=== PATIENT | female | born 1970 | race African-American/Black ===

== ENCOUNTER → 2018-10-17 | Outpatient (CLI) | payer BC ==
[2018-10-17 07:48] LABS: BASOPHILS % 0.4 % (0.0-1.0); EOSINOPHILS # (AUTO) 0.2 (0.0-0.4); EOSINOPHILS % 2.8 % (0.0-6.0); HEMATOCRIT 36.8 % (34.2-44.1); HEMOGLOBIN 12.1 g/dL (12.0-16.0); LYMPHOCYTES # (AUTO) 2.1 (1.0-3.2); MEAN CORPUSCULAR HEMOGLOBIN 28.8 pg (28-32); MEAN CORPUSCULAR HGB CONC 32.9 g/dL (31-35); MEAN CORPUSCULAR VOLUME 87.6 fL (81-99); MONOCYTES # (AUTO) 0.4 (0.2-0.8); MONOCYTES % 5.5 % (4.4-11.3); PLATELET COUNT 545 x10e3/uL (140-360)
[2018-10-17 08:08] LABS: ALANINE AMINOTRANSFERASE 9 IU/L (0-55); ALBUMIN 3.5 g/dL (3.5-5.0); ALBUMIN/GLOBULIN RATIO 0.8 (0.8-2.0); ALKALINE PHOSPHATASE 120 IU/L (40-150); ANION GAP 11.8 mmol/L (8-16); BLOOD UREA NITROGEN 7 mg/dL (7-26); BUN/CREATININE RATIO 10 (6-25); CALCIUM 9.2 mg/dL (8.4-10.2); CARBON DIOXIDE 26 mmol/L (22-29); CHLORIDE 105 mmol/L (98-107); CREATININE, SERUM 0.73 mg/dL (0.57-1.11); EST GLOMERULAR FILTRATION RATE > 60 ML/MIN (60-); GLUCOSE 107 mg/dL (74-118); POTASSIUM 3.8 mmol/L (3.5-5.1); SODIUM 139 mmol/L (136-145)
[2018-10-17 08:57] LABS: FOLATE 4.2 ng/mL (7.0-15.4)
== END ==
LOC: LAB 07:27
PROVIDERS: ATTEND Student in an Organized Health Care Education/Training Program
DX: G40.909 Epilepsy, unspecified, not intractable, without status epilepticus (principal); Z79.899 Other long term (current) drug therapy
CPT/HCPCS: 36415; 80053; 82607; 82652; 82746; 84207; 85025

== ENCOUNTER → 2019-07-09 | Outpatient (CLI) | payer BC ==
--- NOTE | 2019-07-17 09:27 | Diagnostic Imaging Report ---
#[id number] - MGSCRBIL #BILATERAL DIGITAL SCREENING MAMMOGRAM WITH CAD: 07/09/2019 CLINICAL: Routine screening. Comparison is made to exams dated: 04/20/2017 mammogram and 04/19/2016 mammogram - [facility]. Current study contains 5 films. There are scattered fibroglandular elements in both breasts. Current study was also evaluated with a Computer Aided Detection (CAD) system. There are multiple benign fine calcifications throughout the left breast consistent with sclerosing adenosis. There also is a biopsy clip in the left breast. No significant masses, calcifications, or other findings are seen in either breast. IMPRESSION: BENIGN There is no mammographic evidence of malignancy. A 1 year screening mammogram is recommended. The patient will be notified by letter of the results. ANDRZEJ BYRNE M.D. ct/penrad:07/13/2019 11:57:37 Barrel Rifler: Patti APONTE)(Zackery), [facility] letter sent: Normal Exam Mammogram BI-RADS: 2 Benign
== END ==
LOC: MAMMO 12:43
PROVIDERS: ATTEND Family Medicine
DX: Z12.31 Encounter for screening mammogram for malignant neoplasm of breast (principal)
CPT/HCPCS: 77067

== ENCOUNTER → 2019-10-15 | Outpatient (CLI) | payer BC ==
[2019-10-15 09:18] LABS: BASOPHILS % 0.3 % (0.0-1.0); EOSINOPHILS # (AUTO) 0.3 (0.0-0.4); EOSINOPHILS % 2.9 % (0.0-6.0); HEMOGLOBIN 12.1 g/dL (12.0-16.0); LYMPHOCYTES # (AUTO) 3.1 (1.0-3.2); LYMPHOCYTES % 34.7 % (18.0-39.1); MEAN CORPUSCULAR HEMOGLOBIN 28.3 pg (28-32); MEAN CORPUSCULAR HGB CONC 31.8 g/dL (31-35); MONOCYTES # (AUTO) 0.7 (0.2-0.8); MONOCYTES % 7.4 % (4.4-11.3); NEUTROPHILS # (AUTO) 4.9 (2.1-6.9); NEUTROPHILS % 54.5 % (38.7-80.0); PLATELET COUNT 558 x10e3/uL (140-360); RED BLOOD COUNT 4.27 x10e6/uL (3.6-5.1); RED CELL DISTRIBUTION WIDTH 15.4 % (11.7-14.4)
[2019-10-15 09:51] LABS: ALANINE AMINOTRANSFERASE 9 IU/L (0-55); ALBUMIN 3.7 g/dL (3.5-5.0); ALBUMIN/GLOBULIN RATIO 0.8 (0.8-2.0); ALKALINE PHOSPHATASE 115 IU/L (40-150); ANION GAP 13.4 mmol/L (8-16); BLOOD UREA NITROGEN 7 mg/dL (7-26); BUN/CREATININE RATIO 10 (6-25); CALCIUM 9.1 mg/dL (8.4-10.2); CARBON DIOXIDE 23 mmol/L (22-29); CHLORIDE 102 mmol/L (98-107); CREATININE, SERUM 0.72 mg/dL (0.57-1.11); EST GLOMERULAR FILTRATION RATE > 60 ML/MIN (60-); GLUCOSE 98 mg/dL (74-118); POTASSIUM 3.4 mmol/L (3.5-5.1); SODIUM 135 mmol/L (136-145)
[2019-10-15 09:58] LABS: PHENYTOIN (DILANTIN) 10.23 ug/mL (10-20)
== END ==
LOC: LAB 08:43
PROVIDERS: ATTEND Student in an Organized Health Care Education/Training Program
DX: G40.909 Epilepsy, unspecified, not intractable, without status epilepticus (principal); Z79.899 Other long term (current) drug therapy
CPT/HCPCS: 36415; 80053; 80185; 82607; 82652; 82747; 84207; 85025

== ENCOUNTER 2020-04-05 13:10 | Emergency (ER) | payer BC ==
[~2020-04-05] VITALS: Ht 162.6 cm; Wt 93.0 kg
--- OUTSIDE RECORDS SUMMARY | 2020-04-05 13:14 | XMS REPORT ---
Author Author [facility] t Organization [facility] Address [address] [place] [id number] Phone Unavailable Care Team Providers Care Electrochemist Name Role Phone GUILLE ZARAGOZA Unavailable Problems This patient has no known problems. Allergies, Adverse Reactions, Alerts This patient has no known allergies or adverse reactions. Medications This patient has no known medications. Procedures This patient has no known procedures. Results Test Description Test Time Test Comments Results Result Comments Source MAMMOGRAPHY DIGITAL SCR BILAT 2019-07-09 13:14:00 [place] [address] Patient Name: DOMITILA MACIAS MR #: [id number] : 1970 Age/Sex: 49/F Req #: [id number] Adm Physician: Ordered by: ELAINA MOODY MD Report #: [id number] Location: MAMMO Room/Bed: Procedure: [id number] MG/MAMMOGRAPHY DIGITAL SCR BILAT Exam Date: 07/09/19 Exam Time: 1244 REPORT STATUS: Signed #[id number] - MGSCRBIL #BILATERAL DIGITAL SCREENING MAMMOGRAM WITH CAD: 07/09/2019 CLINICAL: Routine screening. Comparison is made to exams dated: 04/20/2017 mammogram and 04/19/2016 mammogram - [facility]. Current study contains 5 films. There are scattered fibroglandular elements in both breasts. Current study was also evaluated with a Computer Aided Detection (CAD) system. There are multiple benign fine calcifications throughout the left breast consistent with sclerosing adenosis. There also is a biopsy clip in the left breast. No significant masses, calcifications, or other findings are seen in either breast. IMPRESSION: BENIGN There is no mammographic evidence of malignancy. A 1 year screening mammogram is recommended. The patient will be notified by letter of the results. ANDRZEJ wiggnis/gerardo:07/13/2019 11:57:37 Legislative Correspondent: Patti APOTNE)(Zackery), [facility] letter sent: Normal Exam Mammogram BI-RADS: 2 Benign Dictated By: ANDRZEJ BYRNE MD [id number] Transcribed By: GERARDO on 07/13/19 7364 COPY TO: ELAINA MOODY MD
[2020-04-05] MEDS ORDERED: TETRACAINE HCL 0.5% OPTH SOLN 4 ML BTL OP ONE (13:30)
[2020-04-05] MEDS ORDERED: FLUORESCEIN SOD(OPTH) 1 MG STRP OP ONE (13:30)
--- NOTE | 2020-04-05 13:55 | Emergency Department Note ---
History of Present Illnes History of Present Illness Chief Complaint: General Medicine Complaints History of Present Illness This is a 50 year old female . Historian: Patient Arrival Mode: Car Document Management Consultant Required: No Onset (how long ago): day(s) (1) Location: left eye Quality: fells like a FB Severity: moderate Onset quality: sudden Duration (how long): day(s) (1) Timing of current episode: constant Progression: unchanged Chronicity: new Relieving factors: none Exacerbating factors: none Associated symptoms: denies other symptoms Treatments prior to arrival: none (BURKE ARTEAGA NP) Past Medical/Family History Physician Review I have reviewed the patient's past medical and family history. Any updates have been documented here. (BURKE ARTEAGA NP) Past Medical History Recent Fever: No Clinical Suspicion of Infectio: No New/Unexplained Change in Ment: No Past Medical History: Seizure Disorder, Chronic Back Pain Past Surgical History: Cholecysctectomy, Tubal Ligation, Back Surgery (BURKE ARTEAGA NP) Social History Smoking Cessation: Never Smoker Counseling Performed: No Any Illegal Drug Use: No TB Exposure/Symptoms: No Physically hurt or threatened: No (BURKE ARTEAGA NP) Family History Family history of heart diseas: No (BURKE ARTEAGA NP) Other Last Tetanus: OUT OF DATE (BURKE ARTEAGA NP) Review of Systems ROS Narrative PATIENT IN FROM HOME WITH COMPLAINTS OF LEFT EYE ITCHING STARTING LAST NIGHT, TODAY WITH REDNESS, PAIN, AND SWELLING. DENIES ANY TRAUMA OR FOREIGN BODY. PATIENT ALERT AND ORIENTED, RESP EVEN AND NONLABORED, APPEARS IN NO DISTRESS. RATES PAIN 7/10 (BURKE ARTEAGA NP) Review of Systems Constitutional: no symptoms EENTM: eye pain, tearing Cardiovascular: no symptoms Respiratory: no symptoms Gastrointestinal: no symptoms Genitourinary: no symptoms Musculoskeletal: no symptoms Neurological: no symptoms Psychological: no symptoms Endocrine: no symptoms Hematological/Lymphatic: no symptoms Review of other systems All other systems reviewed and negative. (BURKE ARTEAGA NP) Physical Exam Related Data Allergies: Coded Allergies: No Known Drug Allergies (Verified Allergy, Mild, 07/15/17) Triage Vital Signs Vital Signs Date Time Temp Pulse Resp B/P (MAP) Pulse Ox O2 Delivery O2 Flow Rate FiO2 04/05/20 13:20 97.4 86 20 146/98 96 Vital signs reviewed: Yes (BURKE ARTEAGA NP) Physical Exam CONSTITUTIONAL Constitutional: well-developed, well-nourished HENT HENT: normocephalic, atraumatic, oropharynx clear/moist, nose normal HENT L/R: left ext ear normal, right ext ear normal EYES Eyes: PERRL, left eye discharge (left eye with chemosis at the lateral margin with redness and clear tearing) NECK Neck: ROM normal PULMONARY Pulmonary: effort normal, breath sounds normal CARDIOVASCULAR Cardiovascular: regular rhythm, heart sounds normal, capillary refill normal, normal rate GASTROINTESTINAL Abdominal: soft, nontender, bowel sounds normal GENITOURINARY Genitourinary: exam deferred SKIN Skin: warm, dry MUSCULOSKELETAL Musculoskeletal: ROM normal NEUROLOGICAL Neurological: alert, oriented x 3, no gross motor or sensory deficits PSYCHOLOGICAL Psychological: mood/affect normal, judgement normal (BURKE ARTEAGA NP) Critical Care Time Subsequent provider I assumed direction of critical care for this patient from another provider of my specialty. (BURKE ARTEAGA NP) Assessment & Plan Reassessment Reassessment time: 13:49 Reassessment patient states pain is better. 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 Tetracaine and fluriscien to left eye, using suarez lamp able to see update in a linear fashion at 4'0 clock and a small FB at 3'0 clock. Unable to remove the FM with a cotton tip . Discussed with patient following up with Dr Arzate (which patient knows) Patient states she will call today to see if they are open. Also discussed medication and how to apply ribbon of EES to eye. All questions answered. (BURKE ARTEAGA NP) Depart Disposition: HOME, SELF-CARE Last Vital Signs Date Time Temp Pulse Resp B/P (MAP) Pulse Ox O2 Delivery O2 Flow Rate FiO2 04/05/20 13:20 97.4 86 20 146/98 96 (BURKE ARTEAGA NP) Medications in the ED Tetracaine HCl ONCE ONCE OP ; Start 04/05/20 at 13:30; Stop 04/05/20 at 13:31 Fluorescein Sodium 1 mg ONCE ONCE OP ; Start 04/05/20 at 13:30; Stop 04/05/20 at 13:31 (BURKE ARTEAGA NP) Physician Attestation Provider Attestation The patient's history, exam findings, diagnostics, and a summary of any interventions or procedures was reviewed in detail with our MORRO. I personally interviewed and examined the patient, and I have reviewed and agree with the HPI andexam. My personal exam shows right eye injected, chemosis laterally. I confirm the diagnosis as documented by the MORRO. I have reviewed and agree with the care plan articulated in the disposition section. (ANGELICA JOHNSTON MD) BURKE ARTEAGA NP April 05, 2020 13:50 ANGELICA JOHNSTON MD April 05, 2020 13:58
== END 2020-04-05 14:01 | disposition home or self-care (01) ==
LOC: ER 13:10
DX: T15.92XA Foreign body on external eye, part unspecified, left eye, initial encounter (principal); H10.12 Acute atopic conjunctivitis, left eye; H11.422 Conjunctival edema, left eye; G40.909 Epilepsy, unspecified, not intractable, without status epilepticus; M54.9 Dorsalgia, unspecified; G89.29 Other chronic pain
CPT/HCPCS: 99281

== ENCOUNTER 2020-04-15 19:08 | Observation (INO) | payer BC, OTHER ==
[~2020-04-15] VITALS: Ht 165.1 cm; Wt 98.9 kg
--- OUTSIDE RECORDS SUMMARY | 2020-04-15 19:11 | XMS REPORT | Continuity of Care Document ---
Author Author [facility] t Organization [facility] Address [address] [place] [address] Phone Unavailable Care Team Providers Care Textile Broker Name Role Phone DO GUILLE ZARAGOZA PCP GUILLE ZARAGOZA Attphys Unavailable Payers Payer Name Policy Type Policy Number Effective Date Expiration Date S hazel [employer] NA 2013 00:00:00 [facility] Problems Condition Name Condition Details Condition Category Status Onset Date Resolution Date Last Treatment Date Treating Clinician Comments Source Laceration Problem Active [facility] Chemosis of left conjunctiva Problem Active [facility] Acute allergic conjunctivitis of left eye Problem Active [facility] Foreign body Problem Active [facility] Allergies, Adverse Reactions, Alerts This patient has no known allergies or adverse reactions. Social History Social Habit Start Date Stop Date Quantity Comments Source Sex Assigned At 1970 00:00:00 1970 00:00:00 Female [facility] Medications This patient has no known medications. Vital Signs Vital Name Observation Time Observation Value Comments Source Weight 2020-04-05 13:20:00 205 [lb_av] [facility] BMI (Body Mass Index) 2020-04-05 13:20:00 35.2 kg/m2 [facility] Procedures This patient has no known procedures. Plan of Care Planned Activity Planned Date Details Comments Source Instructions Corneal Abrasion [facility] Instructions Foreign Body - Eye [facility] Encounters Start Date/Time End Date/Time Encounter Type Admission Type Attendi [facility] Care Department Encounter ID Source 2020-04-05 13:10:00 2020-04-05 14:01:00 Departed Emergency Room [facility] [id number] [facility] dical [place] 2019-10-15 07:43:00 2019-10-15 07:43:00 Registered Clinic [facility] [id number] [facility] ical [place] 2019-07-09 12:43:00 2019-07-09 12:43:00 Registered Clinic 3 [place] JEAN PAULGUILLE [facility] [id number] [facility] Results Test Description Test Time Test Comments Results Result Comments Source Blood leukocytes automated count (number/volume) 2019-10-15 08:00:00 Test Item White Blood Count (test code = 6690-2) 9.03 4.8-10.8 [facility] (number/volume)2019-10-15 08:00:00* Test Item Value Reference Range Interpretation Comments Red Blood Count (test code = 789-8) 4.27 3.6-5.1 [facility] measurement (moles/volume)2019-10-15 08:00:00* Test Item Value Reference Range Interpretation Comments Hemoglobin (test code = 78690-8) 12.1 12.0-16.0 [facility] hematocrit (volume fraction)2019-10-15 08:00:00* Test Item Value Reference Range Interpretation Comments Hematocrit (test code = 4544-3) 38.0 34.2-44.1 [facility] eryth[facility] mean corpuscular vqmmne7471-45-08 08:00:00* Test Item Value Reference Range Interpretation Comments Mean Corpuscular Volume (test code = 787-2) 89.0 81-99 [facility] mean corpuscular hemoglobin (mass per erythrocyte)2019-10-15 08:00:00* Test Item Value Reference Range Interpretation Comments Mean Corpuscular Hemoglobin (test code = 785-6) 28.3 28-32 [facility] eryth[facility] mean corpuscular hemoglobin concentration measurement (mass/volume)2019-10-15 08:00:00* Test Item Value Reference Range Interpretation Comments Mean Corpuscular Hemoglobin Concent (test code = 786-4) 31.8 31-35 [facility] HospitalRDW IbaJm-Cmm2138-20-02 08:00:00* Test Item Value Reference Range Interpretation Comments Red Cell Distribution Width (test code = 28893-0) 15.4 11.7 -14.4 [facility] platelet count (count/volume)2019-10-15 08:00:00* Test Item Value Reference Range Interpretation Comments Platelet Count (test code = 777-3) 558 140-360 [facility] segmented neutrophil count as percentage of total vfnihmnuwg9756-87-07 08:00:00* Test Item Value Reference Range Interpretation Comments Neutrophils (%) (Auto) (test code = 60155-7) 54.5 38.7-80.0 [facility] lymphocyte count as percentage ot total vqzlxovppu3252-44-24 08:00:00* Test Item Value Reference Range Interpretation Comments Lymphocytes (%) (Auto) (test code = 736-9) 34.7 18.0-39.1 [facility] monocyte count as percentage of total zpgyuoijtn1235-59-03 08:00:00* Test Item Value Reference Range Interpretation Comments Monocytes (%) (Auto) (test code = 5905-5) 7.4 4.4-11.3 [facility] blood eosinophil count as percentage of total hueqewmcpi9340-97-64 08:00:00* Test Item Value Reference Range Interpretation Comments Eosinophils (%) (Auto) (test code = 713-8) 2.9 0.0-6.0 [facility] blood basophil count as percentage of total yaopluxlqp4543-09-23 08:00:00* Test Item Value Reference Range Interpretation Comments Basophils (%) (Auto) (test code = 706-2) 0.3 0.0-1.0 [facility] HospitalFluoroscopic procedure less than one hour oaredmuf7096-80-10 08:00:00* Test Item Value Reference Range Interpretation Comments IM GRANULOCYTES % (test code = IM GRANULOCYTES %) 0.2 0.0- 1.0 [facility] blood neutrophil count 2019-10-15 08:00:00* Test Item Value Reference Range Interpretation Comments Neutrophils # (Auto) (test code = 751-8) 4.9 2.1-6.9 [facility] lymphocytes count (number/volume) 2019-10-15 08:00:00* Test Item Value Reference Range Interpretation Comments Lymphocytes # (Auto) (test code = 06690-6) 3.1 1.0-3.2 [facility] monocytes automated count (number/volume)2019-10-15 08:00:00* Test Item Value Reference Range Interpretation Comments Monocytes # (Auto) (test code = 742-7) 0.7 0.2-0.8 [facility] HospitalAutom[facility] blood eosinophil count 2019-10-15 08:00:00* Test Item Value Reference Range Interpretation Comments Eosinophils # (Auto) (test code = 711-2) 0.3 0.0-0.4 [facility] HospitalAutomated blood basophil count (count/volume)2019-10-15 08:00:00* Test Item Value Reference Range Interpretation Comments Basophils # (Auto) (test code = 704-7) 0.0 0.0-0.1 [facility] HospitalFluoroscopic procedure less than one hour sdvgpkqw0154-54-75 08:00:00* Test Item Value Reference Range Interpretation Comments Absolute Immature Granulocyte (auto (adelaida t code = Absolute Immature Granulocyte (auto) 0.02 0-0.1 [facility] or plasma sodium measurement (moles/volume)2019-10-15 08:00:00* Test Item Value Reference Range Interpretation Comments Sodium Level (test code = 2951-2) 135 136-145 [facility] Hospitalerum or plasma potassium measurement (moles/volume)2019-10-15 08:00:00* Test Item Value Reference Range Interpretation Comments Potassium Level (test code = 2823-3) 3.4 3.5-5.1 [facility] Hospitalerum or plasma chloride measurement (moles/volume)2019-10-15 08:00:00* Test Item Value Reference Range Interpretation Comments Chloride Level (test code = 2075-0) 102 98-107 [facility] Hospitalerum or plasma carbon dioxide, total measurement (moles/volume)2019-10-15 08:00:00* Test Item Value Reference Range Interpretation Comments Carbon Dioxide Level (test code = 2028-9) 23 22-29 [facility] Hospitalerum or plasma anion ujk4853-99-27 08:00:00* Test Item Value Reference Range Interpretation Comments Anion Gap (test code = 22356-7) 13.4 8-16 [facility] Hospitalerum or plasma urea nitrogen measurement (mass/volume)2019-10-15 08:00:00* Test Item Value Reference Range Interpretation Comments Blood Urea Nitrogen (test code = 3094-0) 7 7-26 [facility] Hospitalerum or plasma creatinine measurement (mass/volume)2019-10-15 08:00:00* Test Item Value Reference Range Interpretation Comments Creatinine (test code = 2160-0) 0.72 0.57-1.11 [facility] Hospitalerum or plasma urea nitrogen/creatinine mass qtioo3303-89-53 08:00:00* Test Item Value Reference Range Interpretation Comments BUN/Creatinine Ratio (test code = 3097-3) 10 6-25 [facility] HospitalEstimated glomerular filtration rate (GFR) zugomrntciofn2391-50-91 08:00:00* Test Item Value Reference Range Interpretation Comments Estimat Glomerular Filtration Rate (test code = 339550709) > 60 >60 Ranges were taken from the National Kidney Disease Education Program and the [facility] literature.Reference ranges:60 or greater: Gucvyt79-14 ( for 3 consecutive months): Chronic kidney disease 15 or less: Kidney failureFaith Community HospitalGlucose hokjucpijpz7960-55-91 08:00:00* Test Item Value Reference Range Interpretation Comments Glucose Level (test code = YBQ7272) 98 74-118 [facility] Hospitalerum or plasma calcium measurement (mass/volume)2019-10-15 08:00:00* Test Item Value Reference Range Interpretation Comments Calcium Level (test code = 80495-1) 9.1 8.4-10.2 [facility] Hospitalerum or plasma total bilirubin measurement (mass/volume)2019-10-15 08:00:00* Test Item Value Reference Range Interpretation Comments Total Bilirubin (test code = 1975-2) 0.2 0.2-1.2 [facility] HospitalFluoroscopic procedure less than one hour dshjnoln8583-65-86 08:00:00* Test Item Value Reference Range Interpretation Comments Aspartate Amino Transf (AST/SGOT) (test code = Aspartate Amino Transf (AST/SGOT)) 10 5-34 [facility] Hospitalerum or plasma alanine aminotransferase measurement (enzymatic activity/volume)2019-10-15 08:00:00* Test Item Value Reference Range Interpretation Comments Alanine Aminotransferase (ALT/SGPT) (test code = 1742-6) 9 0-55 [facility] Hospitalerum or plasma protein measurement (mass/volume)2019-10-15 08:00:00* Test Item Value Reference Range Interpretation Comments Total Protein (test code = 2885-2) 8.1 6.5-8.1 [facility] Hospitalerum or plasma albumin measurement (mass/volume)2019-10-15 08:00:00* Test Item Value Reference Range Interpretation Comments Albumin (test code = 1751-7) 3.7 3.5-5.0 [facility] HospitalPlasma globulin measurement (mass/volume) 2019-10-15 08:00:00* Test Item Value Reference Range Interpretation Comments Globulin (test code = 19460-0) 4.4 2.3-3.5 [facility] Hospitalerum or plasma albumin/globulin mass wrvrf1342-16-50 08:00:00* Test Item Value Reference Range Interpretation Comments Albumin/Globulin Ratio (test code = 1759-0) 0.8 0.8-2.0 [facility] Hospitalerum or plasma alkaline phosphatase measurement (enzymatic activity/volume)2019-10-15 08:00:00* Test Item Value Reference Range Interpretation Comments Alkaline Phosphatase (test code = 6768-6) 115 40-150 [facility] HospitalBlood cobalamin (vitamin B12) measurement (mass/volume)2019-10-15 08:00:00* Test Item Value Reference Range Interpretation Comments Vitamin B12 Level (test code = 78069-4) 206 213-816 [facility] Hospitalerum or plasma phenytoin measurement (mass/volume)2019-10-15 08:00:00* Test Item Value Reference Range Interpretation Comments Phenytoin (Dilantin) Level (test code = 3968-5) 10.23 10-20 [facility] HospitalBlood folate measurement (mass/volume) 2019-10-15 08:00:00* Test Item Value Reference Range Interpretation Comments RBC Folate Hemolysate (test code = 2282-2) 285.5 Not Estab. [facility] HospitalAutomated blood hematocrit (volume fraction)2019-10-15 08:00:00* Test Item Value Reference Range Interpretation Comments Hematocrit (test code = 4544-3) 39.8 34.0-46.6 [facility] HospitalErythrocyte folate measurement (mass/volume)2019-10-15 08:00:00* Test Item Value Reference Range Interpretation Comments Red Blood Cell Folate (test code = 2283-0) 717 >498 Performed at: [facility] [address] [id number] Director: Kole Villalta MD, Phone: [phone] Hermann Orthopedic & Spine Hospitalerum or plasma pyridoxine measurement (mass/volume)2019-10-15 08:00:00* Test Item Value Reference Range Interpretation Comments Vitamin B6 Level (test code = 2900-9) 1.9 2.0-32.8 Verified by repeat analysisPerformed at: [facility] [id number] Director: Bossman Melo MD, Phone: [phone] & Spine Hospitalerum or plasma calcitriol measurement (mass/volume)2019-10-15 08:00:00* Test Item Value Reference Range Interpretation Comments Vitamin D 1,25-Dihydroxy (test code = 1649-3) 53.9 19.9-79. 3 Performed at: [facility] [id number] [place], [place] [id number] Resaw Carriage Operator: Bossman Melo MD, Phone: [phone] [facility]kinMAMMOGRAPHY DIGITAL SCR [id number] 13:14:00 [facility] [address] [address] Patient Name: DOMITILA MACIAS MR #: [id number] : 1970 Age/Sex: 49/F Req #: [id number] Adm Physician: Ordered by: ELAINA MOODY MD Report #: [id number] Location: MAMMO R oom/Bed: Procedure: [id number] MG/MAMM OGRAPHY DIGITAL SCR BILAT Exam Date: 07/09/19 Exam T chantale: 1244 REPORT STATUS: Signed #[id number] - MGSCRBIL #BILATERAL DIGITAL SCREENING MAMMOGRAM WITH CAD: 07/09/2019 CLINICAL: Routine screening. Comparison is made to exams date d: 04/20/2017 mammogram and 04/19/2016 mammogram - [facility] nter. Current study contains 5 films. There are scattered fibroglandular el ements in both breasts. Current study was also evaluated with a Computer Aid ed Detection (CAD) system. There are multiple benign fine calcifications thr oughout the left breast consistent with sclerosing adenosis. There also is a biopsy clip in the left breast. No significant masses, calcifications, or ot her findings are seen in either breast. IMPRESSION: BENIGN There is no mammographic evidence of malignancy. A 1 year screening mammogram is recommende d. The patient will be notified by letter of the results. ANDRZEJ wiggins/gerardo:07/13/2019 11:57:37 Window Machine Operator: Patti APONTE)(Zackery), [facility] letter sent: Huyen banks Exam Mammogram BI-RADS: 2 Benign Dictated By: ANDRZEJ BYRNE MD Electr onically Signed By: ANDRZEJ BYRNE MD on 07/13/19 3950 Transcribed By: GERARDO on 07/13/19 1615 COPY TO: ELAINA MOODY MD
[2020-04-15 20:03] LABS: BASOPHILS % 0.5 % (0.0-1.0); EOSINOPHILS # (AUTO) 0.2 (0.0-0.4); EOSINOPHILS % 2.9 % (0.0-6.0); HEMATOCRIT 35.9 % (34.2-44.1); HEMOGLOBIN 11.4 g/dL (12.0-16.0); LYMPHOCYTES # (AUTO) 2.8 (1.0-3.2); MEAN CORPUSCULAR HEMOGLOBIN 26.8 pg (28-32); MEAN CORPUSCULAR HGB CONC 31.8 g/dL (31-35); MEAN CORPUSCULAR VOLUME 84.5 fL (81-99); MONOCYTES # (AUTO) 0.5 (0.2-0.8); MONOCYTES % 7.3 % (4.4-11.3); NEUTROPHILS # (AUTO) 3.7 (2.1-6.9); PLATELET COUNT 624 x10e3/uL (140-360); RED BLOOD COUNT 4.25 x10e6/uL (3.6-5.1); RED CELL DISTRIBUTION WIDTH 17.6 % (11.7-14.4)
--- NOTE | 2020-04-15 20:04 | Emergency Department Note ---
History of Present Illnes History of Present Illness Chief Complaint: General Medicine Complaints History of Present Illness This is a 50 year old female who presents with c/o intermittent left side headache along her left temporal area, denies eye pain, denies photophobia, denies n/v. states too excedrin and it helped but pain returned later. . Historian: Patient Arrival Mode: Car Onset (how long ago): day(s) (1) Location: left temporal area Quality: pain Radiation: non-radiation Severity: severe Onset quality: gradual Duration (how long): day(s) (1) Timing of current episode: intermittent Progression: waxing and waning Chronicity: new Context: recent illness Relieving factors: none Exacerbating factors: none Associated symptoms: denies other symptoms Treatments prior to arrival: other (excedrin) Past Medical/Family History Physician Review I have reviewed the patient's past medical and family history. Any updates have been documented here. Past Medical History Recent Fever: No Clinical Suspicion of Infectio: No New/Unexplained Change in Ment: No Past Medical History: Seizure Disorder, Chronic Back Pain Past Surgical History: Cholecysctectomy, Tubal Ligation, Back Surgery Social History Smoking Cessation: Never Smoker Alcohol Use: None Any Illegal Drug Use: No Other Last Tetanus: OUT OF DATE Review of Systems Review of Systems Constitutional: no symptoms EENTM: no symptoms Cardiovascular: no symptoms Respiratory: no symptoms Gastrointestinal: no symptoms Genitourinary: no symptoms Musculoskeletal: no symptoms Neurological: headache Psychological: no symptoms Endocrine: no symptoms Hematological/Lymphatic: no symptoms Review of other systems All other systems reviewed and negative. Physical Exam Related Data Allergies: Coded Allergies: No Known Drug Allergies (Verified Allergy, Mild, 07/15/17) Triage Vital Signs Vital Signs Date Time Temp Pulse Resp B/P (MAP) Pulse Ox O2 Delivery O2 Flow Rate FiO2 04/15/20 19:29 98.0 82 20 145/91 94 Vital signs reviewed: Yes Physical Exam CONSTITUTIONAL Constitutional: well-developed, well-nourished, distressed (mild) HENT HENT: normocephalic, atraumatic, oropharynx clear/moist, nose normal, other (MILD TENDERNESS OVER LEFT TEMPORAL ARTERY) HENT L/R: left ext ear normal, right ext ear normal EYES Eyes: PERRL, conjunctivae normal NECK Neck: ROM normal PULMONARY Pulmonary: effort normal, breath sounds normal CARDIOVASCULAR Cardiovascular: regular rhythm, heart sounds normal, capillary refill normal, normal rate GASTROINTESTINAL Abdominal: soft, nontender, bowel sounds normal GENITOURINARY Genitourinary: exam deferred SKIN Skin: warm, dry MUSCULOSKELETAL Musculoskeletal: ROM normal NEUROLOGICAL Neurological: alert, oriented x 3, no gross motor or sensory deficits PSYCHOLOGICAL Psychological: mood/affect normal, judgement normal Results Laboratory Laboratory Laboratory Tests Test 04/15/20 19:42 White Blood Count 7.29 x10e3/uL (4.8-10.8) Red Blood Count 4.25 x10e6/uL (3.6-5.1) Hemoglobin 11.4 g/dL (12.0-16.0) Hematocrit 35.9 % (34.2-44.1) Mean Corpuscular Volume 84.5 fL (81-99) Mean Corpuscular Hemoglobin 26.8 pg (28-32) Mean Corpuscular Hemoglobin Concent 31.8 g/dL (31-35) Red Cell Distribution Width 17.6 % (11.7-14.4) Platelet Count 624 x10e3/uL (140-360) Neutrophils (%) (Auto) 50.0 % (38.7-80.0) Lymphocytes (%) (Auto) 39.0 % (18.0-39.1) Monocytes (%) (Auto) 7.3 % (4.4-11.3) Eosinophils (%) (Auto) 2.9 % (0.0-6.0) Basophils (%) (Auto) 0.5 % (0.0-1.0) Neutrophils # (Auto) 3.7 (2.1-6.9) Lymphocytes # (Auto) 2.8 (1.0-3.2) Monocytes # (Auto) 0.5 (0.2-0.8) Eosinophils # (Auto) 0.2 (0.0-0.4) Basophils # (Auto) 0.0 (0.0-0.1) Absolute Immature Granulocyte (auto 0.02 x10e3/uL (0-0.1) Erythrocyte Sedimentation Rate 39 mm/hr (0-20) Sodium Level 138 mmol/L (136-145) Potassium Level 3.7 mmol/L (3.5-5.1) Chloride Level 105 mmol/L (98-107) Carbon Dioxide Level 24 mmol/L (22-29) Anion Gap 12.7 mmol/L (8-16) Blood Urea Nitrogen 5 mg/dL (7-26) Creatinine 0.72 mg/dL (0.57-1.11) Estimat Glomerular Filtration Rate > 60 ML/MIN (60-) BUN/Creatinine Ratio 7 (6-25) Glucose Level 93 mg/dL (74-118) Calcium Level 9.1 mg/dL (8.4-10.2) Lab results reviewed: Yes Laboratory comments SED RATE ELEVATED Imaging Imaging results reviewed: Yes Impressions EXAMINATION: Head CT without contrast. HISTORY:Headache and nausea. COMPARISON:None. TECHNIQUE: Multidetector axial images were obtained from the foramen magnum to the vertex without contrast. The images were reconstructed using brain and bone algorithms. Thin section brain images were reformatted into coronal and sagittal planes. Dose modulation, iterative reconstruction, and/or weight based adjustment of the mA/kV was utilized to reduce the radiation dose to as low as reasonably achievable. Intravenous contrast: None IMAGE QUALITY: Acceptable. FINDINGS: Skull/scalp: No lytic or blastic. lesions. No surgical changes. Parenchyma: No abnormal density. No acute hemorrhage, mass or acute major vascular territorial infarct. Arteries: No density suggestive of thrombosis. Dural sinuses: No abnormal density suggestive of thrombosis. Ventricles: No hydrocephalus or displacement. Extra-axial spaces: No abnormal density. Brain volume: Normal for age. Craniocervical junction: No mass, Chiari malformation, or basilar invagination. Sella: No mass. Paranasal/mastoid sinuses: Imaged portions unremarkable. IMPRESSION: No intracranial abnormality. Signed by: Dr. Deepa Palmer M.D. on 04/15/2020 8:09 PM Dictated By: DEEPA PALMER MD 08 Transcribed By: FADY on 04/15/202008 COPY TO: JUDSON EVERETT MD~ Critical Care Time Subsequent provider I assumed direction of critical care for this patient from another provider of my specialty. Assessment & Plan Reassessment Reassessment time: 21:31 Reassessment HEADACHE HAS IMPROVED AT THIS TIME, STATES ABOUT 50% BETTER Assessment & Plan Final Impression: (1) OTHER HEADACHE SYNDROME (2) HEADACHE Assessment & Plan pt wiht intermittent left temporal headache, cbc, bmp, sed rate, ct brain ordered to eval for intracranial abnormality, possible temporal arteritis. TORADOL 30 MG IV ORDERED BENADRYL 25 MG IV ORDERED ZOFRAN 4 MG IV ORDERED NS 1 LITER IV ORDERED FIORICET 1 PO ORDERED PT HAS ELEVATED SED RATE AND DUE TO MILD TENDERNESS TO LEFT TEMPORAL REGION ANNA Mckenzie TEMPORAL ARTERY PT WILL BE ADMITTED AND STARTED ON PREDNISONE 60 MG PO DAILY I SPOKE WITH DR BALDERRAMA, MADELIN IN OBSERVATION, ORDER MRA HEAD AND REPEAT SED RATE IN THE AM I DISCUSSED PLAN WITH PT AND SHE AGREES TO BE ADMITTED FOR FURTHER WORKUP Last Vital Signs Date Time Temp Pulse Resp B/P (MAP) Pulse Ox O2 Delivery O2 Flow Rate FiO2 04/15/20 19:29 98.0 82 20 145/91 94 JUDSON EVERETT MD Apr 15, 2020 20:03
--- NOTE | 2020-04-15 20:13 | Diagnostic Imaging Report ---
EXAMINATION: Head CT without contrast. HISTORY:Headache and nausea. COMPARISON:None. TECHNIQUE: Multidetector axial images were obtained from the foramen magnum to the vertex without contrast. The images were reconstructed using brain and bone algorithms. Thin section brain images were reformatted into coronal and sagittal planes. Dose modulation, iterative reconstruction, and/or weight based adjustment of the mA/kV was utilized to reduce the radiation dose to as low as reasonably achievable. Intravenous contrast: None IMAGE QUALITY: Acceptable. FINDINGS: Skull/scalp: No lytic or blastic. lesions. No surgical changes. Parenchyma: No abnormal density. No acute hemorrhage, mass or acute major vascular territorial infarct. Arteries: No density suggestive of thrombosis. Dural sinuses: No abnormal density suggestive of thrombosis. Ventricles: No hydrocephalus or displacement. Extra-axial spaces: No abnormal density. Brain volume: Normal for age. Craniocervical junction: No mass, Chiari malformation, or basilar invagination. Sella: No mass. Paranasal/mastoid sinuses: Imaged portions unremarkable. IMPRESSION: No intracranial abnormality. Signed by: Dr. Deepa Palmer M.D. on 04/15/2020 8:09 PM
[2020-04-15 20:20] LABS: ANION GAP 12.7 mmol/L (8-16); BLOOD UREA NITROGEN 5 mg/dL (7-26); BUN/CREATININE RATIO 7 (6-25); CALCIUM 9.1 mg/dL (8.4-10.2); CARBON DIOXIDE 24 mmol/L (22-29); CHLORIDE 105 mmol/L (98-107); CREATININE, SERUM 0.72 mg/dL (0.57-1.11); EST GLOMERULAR FILTRATION RATE > 60 ML/MIN (60-); GLUCOSE 93 mg/dL (74-118); POTASSIUM 3.7 mmol/L (3.5-5.1); SODIUM 138 mmol/L (136-145)
[2020-04-15] MEDS ORDERED: ONDANSETRON HCL INJ 2MG/ML 2ML 2 MG/ML VIAL IV STA (20:41)
[2020-04-15] MEDS ORDERED: KETOROLAC TROMETHAMINE 30 MG/ML VIAL IV STA (20:41)
[2020-04-15] MEDS ORDERED: SODIUM CHLORIDE 0.9% 1000ML 1,000 ML IV ONE (20:45)
[2020-04-15] MEDS ORDERED: ACETAMIN/BUTALBITAL/CAFFEINE TAB PO ONE (20:45)
[2020-04-15] MEDS ORDERED: DIPHENHYDRAMINE HCL INJ 50 MG/ML VIAL IV ONE (20:45)
[2020-04-15] MEDS ORDERED: KETOROLAC TROMETHAMINE 30 MG/ML VIAL IM PRN (21:45)
[2020-04-15] MEDS ORDERED: SODIUM CHLORIDE FLUSH 10 ML SYR INJ PRN (21:45)
[2020-04-15] MEDS ORDERED: ACETAMIN/BUTALBITAL/CAFFEINE TAB PO PRN (21:45)
--- OUTSIDE RECORDS SUMMARY | 2020-04-15 21:52 | XMS REPORT | Continuity of Care Document ---
Author Author [facility] Organization [facility] Address [address] [place] [address] Phone Unavailable Care Team Providers Care Public Health Doctor Name Role Phone DO GUILLE ZARAGOZA PCP Marleny EVERETT Attphys Unavailable GUILLE ZARAGOZA Attphys Unavailable Payers Payer Name Policy Type Policy Number Effective Date Expiration Date S haz[employer] [place] [employer] [place] [employer] NA 2013 00:00:00 [facility] Problems Condition Name Condition Details Condition Category Status Onset Date Resolution Date Last Treatment Date Treating Clinician Comments Source Laceration Problem Active [facility] Chemosis of left conjunctiva Problem Active [facility] Acute allergic conjunctivitis of left eye Problem Active [facility] Foreign body Problem Active [facility] Allergies, Adverse Reactions, Alerts This patient has no known allergies or adverse reactions. Social History Social Habit Start Date Stop Date Quantity Comments Source Sex Assigned At 1970 00:00:00 1970 00:00:00 Female [facility] Medications This patient has no known medications. Vital Signs Vital Name Observation Time Observation Value Comments Source Weight 2020-04-05 13:20:00 205 [lb_av] [facility] BMI (Body Mass Index) 2020-04-05 13:20:00 35.2 kg/m2 [facility] Procedures This patient has no known procedures. Plan of Care Planned Activity Planned Date Details Comments Source Instructions Corneal Abrasion [facility] Instructions Foreign Body - Eye [facility] Encounters Start Date/Time End Date/Time Encounter Type Admission Type Attendi [facility] Care Department Encounter ID Source 2020-04-05 13:10:00 2020-04-05 14:01:00 Departed Emergency Room [facility] [id number] [facility] 2019-10-15 07:43:00 2019-10-15 07:43:00 Registered Clinic [facility] [id number] [facility] Med ical [place] 2019-07-09 12:43:00 2019-07-09 12:43:00 Registered Clinic 3 [place] GUILLE REAVES [facility] [id number] [facility] Results Test Description Test Time Test Comments Results Result Comments Source CT BRAIN WO 2020-04-15 20:07:00 [facility] [address] [address] Patient Name: DOMITILA MACIAS MR #: [id number] : 1970 Age/Sex: 50/F Req #: [id number] Adm Physician: Ordered by: JUDSON EVERETT MD Report #: [id number] Location: ER Room/Bed: Procedure: [id number] CT/CT BRAIN WO Exam Date: 04/15/20 Exam Time: 1938 REPORT STATUS: Signed EXAMINATION: Head CT without contrast. HISTORY:Headache and nausea. COMPARISON:None. TECHNIQUE: Multidetector axial images were obtained from the foramen magnum to the vertex without contrast. The images were reconstructed using brain and bone algorithms. Thin section brain images were reformatted into coronal and sagittal planes. Dose modulation, iterative reconstruction, and/or weight based adjustment of the mA/kV was utilized to reduce the radiation dose to as low as reasonably achievable. Intravenous contrast: None IMAGE QUALITY: Acceptable. FINDINGS: Skull/scalp: No lytic or blastic. lesions. No surgical lou es. Parenchyma: No abnormal density. No acute hemorrhage, mass or acute major vascular territorial infarct. Arteries: No density suggestive of thrombosis. Dural sinuses: No abnormal density suggestive of thrombosis. Ventricles: No hydrocephalus or displacement. Extra- axial spaces: No abnormal density. Brain volume: Normal for age. Craniocervical junction: No mass, Chiari malformation, or basilar invagination. Sella: No mass. Paranasal/mastoid sinuses: Imaged portions unremarkable. IMPRESSION: No intracranial abnormality. Signed by: Dr. Deepa Palmer M.D. on 04/15/2020 8:09 PM Dictated By: DEEPA PALMER MD 08 Transcribed By: FADY on 04/15/202008 COPY TO: JUDSON EVERETT MD Blood leukocytes automated count (number/volume) 2019-10-15 08:00:00 Test Item White Blood Count (test code = 6690-2) 9.03 4.8-10.8 [facility] (number/volume)2019-10-15 08:00:00* Test Item Value Reference Range Interpretation Comments Red Blood Count (test code = 789-8) 4.27 3.6-5.1 [facility] measurement (moles/volume)2019-10-15 08:00:00* Test Item Value Reference Range Interpretation Comments Hemoglobin (test code = 61329-5) 12.1 12.0-16.0 [facility] CenterAutomated blood hematocrit (volume fraction)2019-10-15 08:00:00* Test Item Value Reference Range Interpretation Comments Hematocrit (test code = 4544-3) 38.0 34.2-44.1 [facility] CenterAutomated erythrocyte mean corpuscular [id number] 08:00:00* Test Item Value Reference Range Interpretation Comments Mean Corpuscular Volume (test code = 787-2) 89.0 81-99 [facility] CenterAutomated erythrocyte mean corpuscular hemoglobin (mass per erythrocyte)2019-10-15 08:00:00* Test Item Value Reference Range Interpretation Comments Mean Corpuscular Hemoglobin (test code = 785-6) 28.3 28-32 [facility] CenterAutomated erythrocyte mean corpuscular hemoglobin concentration measurement (mass/volume)2019-10-15 08:00:00* Test Item Value Reference Range Interpretation Comments Mean Corpuscular Hemoglobin Concent (test code = 786-4) 31.8 31-35 [facility] CenterRDW [id number]-[id number] 08:00:00* Test Item Value Reference Range Interpretation Comments Red Cell Distribution Width (test code = 59803-3) 15.4 11.7 -14.4 [facility] CenterAutomated blood platelet count (count/volume)2019-10-15 08:00:00* Test Item Value Reference Range Interpretation Comments Platelet Count (test code = 777-3) 558 140-360 [facility] CenterAutomated blood segmented neutrophil count as percentage of total fhdqclnpti4353-38-99 08:00:00* Test Item Value Reference Range Interpretation Comments Neutrophils (%) (Auto) (test code = 28068-0) 54.5 38.7-80.0 [facility] CenterAutomated blood lymphocyte count as percentage ot total xufxbmkrxb6581-39-62 08:00:00* Test Item Value Reference Range Interpretation Comments Lymphocytes (%) (Auto) (test code = 736-9) 34.7 18.0-39.1 [facility] CenterAutomated blood monocyte count as percentage of total wxqyptjmih2117-60-21 08:00:00* Test Item Value Reference Range Interpretation Comments Monocytes (%) (Auto) (test code = 5905-5) 7.4 4.4-11.3 [facility] CenterAutomated blood eosinophil count as percentage of total kcmrvolzla9020-62-60 08:00:00* Test Item Value Reference Range Interpretation Comments Eosinophils (%) (Auto) (test code = 713-8) 2.9 0.0-6.0 [facility] CenterAutomated blood basophil count as percentage of total [id number] 08:00:00* Test Item Value Reference Range Interpretation Comments Basophils (%) (Auto) (test code = 706-2) 0.3 0.0-1.0 [facility] CenterFluoroscopic procedure less than one hour nvvdaifz6975-47-04 08:00:00* Test Item Value Reference Range Interpretation Comments IM GRANULOCYTES % (test code = IM GRANULOCYTES %) 0.2 0.0- 1.0 [facility] CenterAutomated blood neutrophil count 2019-10-15 08:00:00* Test Item Value Reference Range Interpretation Comments Neutrophils # (Auto) (test code = 751-8) 4.9 2.1-6.9 [facility] CenterBlood lymphocytes count (number/volume) 2019-10-15 08:00:00* Test Item Value Reference Range Interpretation Comments Lymphocytes # (Auto) (test code = 77376-2) 3.1 1.0-3.2 [facility] CenterBlood monocytes automated count (number/volume)2019-10-15 08:00:00* Test Item Value Reference Range Interpretation Comments Monocytes # (Auto) (test code = 742-7) 0.7 0.2-0.8 [facility] CenterAutomated blood eosinophil count 2019-10-15 08:00:00* Test Item Value Reference Range Interpretation Comments Eosinophils # (Auto) (test code = 711-2) 0.3 0.0-0.4 [facility] CenterAutomated blood basophil count (count/volume)2019-10-15 08:00:00* Test Item Value Reference Range Interpretation Comments Basophils # (Auto) (test code = 704-7) 0.0 0.0-0.1 [facility] CenterFluoroscopic procedure less than one hour ujqslcly1000-51-62 08:00:00* Test Item Value Reference Range Interpretation Comments Absolute Immature Granulocyte (auto (adelaida t code = Absolute Immature Granulocyte (auto) 0.02 0-0.1 [facility]rum [facility] plasma sodium measurement (moles/volume)2019-10-15 08:00:00* Test Item Value Reference Range Interpretation Comments Sodium Level (test code = 2951-2) 135 136-145 [facility] Centererum or plasma potassium measurement (moles/volume)2019-10-15 08:00:00* Test Item Value Reference Range Interpretation Comments Potassium Level (test code = 2823-3) 3.4 3.5-5.1 [facility] Centererum or plasma chloride measurement (moles/volume)2019-10-15 08:00:00* Test Item Value Reference Range Interpretation Comments Chloride Level (test code = 2075-0) 102 98-107 [facility] Centererum or plasma carbon dioxide, total measurement (moles/volume)2019-10-15 08:00:00* Test Item Value Reference Range Interpretation Comments Carbon Dioxide Level (test code = 2028-9) 23 22-29 [facility] Centererum or plasma anion [id number] 08:00:00* Test Item Value Reference Range Interpretation Comments Anion Gap (test code = 70841-1) 13.4 8-16 [facility]ererum or plasma urea nitrogen measurement (mass/volume)2019-10-15 08:00:00* Test Item Value Reference Range Interpretation Comments Blood Urea Nitrogen (test code = 3094-0) 7 7-26 [facility] Centererum or plasma creatinine measurement (mass/volume)2019-10-15 08:00:00* Test Item Value Reference Range Interpretation Comments Creatinine (test code = 2160-0) 0.72 0.57-1.11 [facility] Centererum or plasma urea nitrogen/creatinine mass oecta7029-58-31 08:00:00* Test Item Value Reference Range Interpretation Comments BUN/Creatinine Ratio (test code = 3097-3) 10 6-25 [facility] CenterEstimated glomerular filtration rate (GFR) gemqffbxbqhxq2428-10-02 08:00:00* Test Item Value Reference Range Interpretation Comments Estimat Glomerular Filtration Rate (test code = 107594684) > 60 >60 Ranges were taken from the National Kidney Disease Education Program and the [facility] [employer] literature.Reference ranges:60 or greater: Mehnrk51-06 ( for 3 consecutive months): Chronic kidney disease 15 or less: Kidney failureShannon Medical CenterGlucose bztdmlnbjwr7047-00-56 08:00:00* Test Item Value Reference Range Interpretation Comments Glucose Level (test code = BQN8448) 98 74-118 [facility] Centererum or plasma calcium measurement (mass/volume)2019-10-15 08:00:00* Test Item Value Reference Range Interpretation Comments Calcium Level (test code = 29000-5) 9.1 8.4-10.2 [facility] Centererum or plasma total bilirubin measurement (mass/volume)2019-10-15 08:00:00* Test Item Value Reference Range Interpretation Comments Total Bilirubin (test code = 1975-2) 0.2 0.2-1.2 [facility] CenterFluoroscopic procedure less than one hour dyeyenqh4477-22-39 08:00:00* Test Item Value Reference Range Interpretation Comments Aspartate Amino Transf (AST/SGOT) (test code = Aspartate Amino Transf (AST/SGOT)) 10 5-34 [facility] Centererum or plasma alanine aminotransferase measurement (enzymatic activity/volume)2019-10-15 08:00:00* Test Item Value Reference Range Interpretation Comments Alanine Aminotransferase (ALT/SGPT) (test code = 1742-6) 9 0-55 [facility] Centererum or plasma protein measurement (mass/volume)2019-10-15 08:00:00* Test Item Value Reference Range Interpretation Comments Total Protein (test code = 2885-2) 8.1 6.5-8.1 [facility] Centererum or plasma albumin measurement (mass/volume)2019-10-15 08:00:00* Test Item Value Reference Range Interpretation Comments Albumin (test code = 1751-7) 3.7 3.5-5.0 [facility] CenterPlasma globulin measurement (mass/volume) 2019-10-15 08:00:00* Test Item Value Reference Range Interpretation Comments Globulin (test code = 97819-7) 4.4 2.3-3.5 [facility] Centererum or plasma albumin/globulin mass haylh2014-62-45 08:00:00* Test Item Value Reference Range Interpretation Comments Albumin/Globulin Ratio (test code = 1759-0) 0.8 0.8-2.0 [facility] Centererum or plasma alkaline phosphatase measurement (enzymatic activity/volume)2019-10-15 08:00:00* Test Item Value Reference Range Interpretation Comments Alkaline Phosphatase (test code = 6768-6) 115 40-150 [facility] CenterBlood cobalamin (vitamin B12) measurement (mass/volume)2019-10-15 08:00:00* Test Item Value Reference Range Interpretation Comments Vitamin B12 Level (test code = 59965-5) 206 213-816 [facility] Centererum or plasma phenytoin measurement (mass/volume)2019-10-15 08:00:00* Test Item Value Reference Range Interpretation Comments Phenytoin (Dilantin) Level (test code = 3968-5) 10.23 10-20 [facility] CenterBlood folate measurement (mass/volume) 2019-10-15 08:00:00* Test Item Value Reference Range Interpretation Comments RBC Folate Hemolysate (test code = 2282-2) 285.5 Not Estab. [facility] CenterAutomated blood hematocrit (volume fraction)2019-10-15 08:00:00* Test Item Value Reference Range Interpretation Comments Hematocrit (test code = 4544-3) 39.8 34.0-46.6 [facility] CenterErythrocyte folate measurement (mass/volume)2019-10-15 08:00:00* Test Item Value Reference Range Interpretation Comments Red Blood Cell Folate (test code = 2283-0) 717 >498 Performed at: - Lab[address] [id number] Director: Kole Villalta MD, Phone: [phone] Regional Medical Centererum or plasma pyridoxine measurement (mass/volume)2019-10-15 08:00:00* Test Item Value Reference Range Interpretation Comments Vitamin B6 Level (test code = 2900-9) 1.9 2.0-32.8 Verified by repeat analysisPerformed at: - Lab[address] [id number] Director: Bossman Melo MD, Phone: [phone] Medical Centererum or plasma calcitriol measurement (mass/volume)2019-10-15 08:00:00* Test Item Value Reference Range Interpretation Comments Vitamin D 1,25-Dihydroxy (test code = 1649-3) 53.9 19.9-79. 3 Performed at: [facility] Lab[address] [id number] American Sign Language Interpreter: Bossman Melo MD, Phone: [phone] [facility]aMAMMO[facility] S[facility] [id number] 13:14:00 [facility] [address] [address] Patient Name: DOMITILA MACIAS MR #: [id number] : 1970 Age/Sex: 49/F Req #: [id number] Adm Physician: Ordered by: ELAINA MOODY MD Report #: [id number] Location: MAMMO R oom/Bed: Procedure: [id number] MG/MAMM OGRAPHY DIGITAL SCR BILAT Exam Date: 07/09/19 Exam T chantale: 1244 REPORT STATUS: Signed #[id number] - [id number] #BILATERAL DIGITAL SCREENING MAMMOGRAM WITH CAD: 07/09/2019 CLINICAL: Routine screening. Comparison is made to exams date d: 04/20/2017 mammogram and 04/19/2016 mammogram - [facility] nt. Current study contains 5 films. There are [...] notified by letter of the results. ANDRZEJ wiggins/raffaele:07/13/2019 11:57:37 Sales Analytics Manager: Patti JOHN (R)), [facility] letter sent: Huyen banks Exam Mammogram BI-RADS: 2 Benign Dictated By: ANDRZEJ BYRNE MD Electr onically Signed By: ANDRZEJ BYRNE MD on 07/13/19 115 Transcribed By: RAFFAELE on 07/13/19 1157 COPY TO: ELAINA MOODY MD
[2020-04-15] MEDS: PREDNISONE 20 MG TAB PO SCH (22:14)
[2020-04-15 23:57] VITALS: BP 132/77
[2020-04-16] VITALS (7 sets, daily range): BP systolic 97–132; BP diastolic 56–77
[2020-04-16] MEDS ORDERED: DILANTIN100 MG PO (01:26)
[2020-04-16] MEDS ORDERED: MOXIFLOXACIN3 ML OP (01:26)
[2020-04-16] MEDS ORDERED: LOTEMAX5 ML OP (01:26)
--- NOTE | 2020-04-16 06:42 | NUR ---
Bedside shift report received from off going nurse. Patient is resting in bed. No acute distress noted. Call light within reach. Bed in the lowest position.
--- NOTE | 2020-04-16 07:11 | NUR ---
Bedside report and walking rounds completed with oncoming nurse. Patient in bed with call light within reach. No issues or concerns noted.
[2020-04-16] MEDS: PREDNISONE 20 MG TAB PO SCH (08:00)
--- NOTE | 2020-04-16 09:30 | NUR ---
Pt requested [facility] visit via RN. [facility] provided emotional/spiritual support and prayer. Will follow as able. KRANTHI HEIN [facility] Spiritual Care Department O: [phone]
[2020-04-16] MEDS ORDERED: HYDRALAZINE HCL 20 MG/ML VIAL IV PRN (12:15)
[2020-04-16] MEDS ORDERED: ACETAMINOPHEN 325 MG TAB PO PRN (12:15)
[2020-04-16] MEDS: PHENYTOIN SODIUM EXT REL 100 MG CAP PO SCH (13:26)
--- NOTE | 2020-04-16 14:47 | Diagnostic Imaging Report ---
MRI BRAIN WO HISTORY: Headache COMPARISON: Head CT 04/15/2020 TECHNIQUE: Sagittal T2, axial T2, axial T1, axial T2/FLAIR, axial gradient echo (or susceptibility weighted), coronal T2/FLAIR, and axial diffusion weighted MR images of the brain were obtained without contrast. Motion and susceptibility artifacts obscure some details. DISCUSSION: Scalp/bone marrow: Unremarkable. Brain sulci: Appropriate for patient's age. Ventricles: Normal in size and configuration. No hydrocephalus. Extra-axial spaces: No masses or fluid collections. Parenchyma: No abnormal signal intensities. No mass, hemorrhage, or acute vascular insults. Vessels: Normal flow voids in major arteries and veins. Sellar/Suprasellar region: No abnormalities. Craniocervical junction: No abnormalities. Incidental findings: Prominent left maxillary sinus T2 hyperintense mucosal thickening could be due to a retention cyst. IMPRESSION: Motion and susceptibility artifacts obscure some details. In spite of limitations: 1. No acute intracranial abnormalities. 2. Left maxillary sinus retention cyst. Signed by: Dr. Jovan Haskins M.D. on 04/16/2020 2:44 PM
--- NOTE | 2020-04-16 14:56 | Diagnostic Imaging Report ---
MRA HEAD WO HISTORY: Headache COMPARISON: Concurrent MRI of the brain TECHNIQUE: Axial 3D intracranial [id number] MRA images were obtained without contrast. Maximum intensity projection and coronal/sagittal reformatted images were created. 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 No other flow abnormalities in the intracranial internal carotid arteries. Normal A1 and M1 segments. Vertebrobasilar Circulation: Right vertebral artery: No flow abnormalities. Left vertebral artery: No flow abnormalities. Basilar artery: No flow abnormalities. Posterior cerebral arteries: No flow abnormalities. Normal Variants: ACom: Visualized. PComs: Not clearly visualized. Vertebral arteries: Co-dominant. IMPRESSION: 1. 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 2. No other intracranial MRA abnormalities. Signed by: Dr. Jovan Haskins M.D. on 04/16/2020 2:53 PM
[2020-04-16] MEDS: ONDANSETRON HCL INJ 2MG/ML 2ML 2 MG/ML VIAL IV PRN (15:08)
[2020-04-16] MEDS: FAMOTIDINE 20 MG/2 ML VIAL IV SCH (16:01)
--- NOTE | 2020-04-16 19:06 | NUR ---
BEDSIDE SHIFT REPORT GIVEN TO ONCOMING NURSE. PATIENT IS RESTING IN BED. NO ACUTE DISTRESS NOTED. CALL LIGHT WITHIN REACH.
--- NOTE | 2020-04-16 19:15 | NUR ---
Patient visited in room during nursing rounds. Patient alert and oriented x3. Ambulatory in room prn. Pt denies headache or discomfort at this time. Call castillo within reach. Will monitor closely.
--- NOTE | 2020-04-16 20:00 | NUR ---
Patient took a bath and tolerated it well. No c/o pain or any discomfort at this time.
[2020-04-17] VITALS: BP 106/63
[2020-04-17 04:00] VITALS: BP 91/59
--- NOTE | 2020-04-17 06:46 | NUR ---
Received bedside shift report from off going nurse. Patient is resting in bed, no acute distress noted. Call light within reach. Bed in the lowest position.
[2020-04-17 06:54] LABS: BASOPHILS % 0.3 % (0.0-1.0); EOSINOPHILS # (AUTO) 0.1 (0.0-0.4); EOSINOPHILS % 0.8 % (0.0-6.0); HEMATOCRIT 33.8 % (34.2-44.1); HEMOGLOBIN 10.4 g/dL (12.0-16.0); LYMPHOCYTES # (AUTO) 4.6 (1.0-3.2); LYMPHOCYTES % 35.3 % (18.0-39.1); MEAN CORPUSCULAR HEMOGLOBIN 26.5 pg (28-32); MEAN CORPUSCULAR HGB CONC 30.8 g/dL (31-35); MEAN CORPUSCULAR VOLUME 86.2 fL (81-99); MONOCYTES # (AUTO) 0.7 (0.2-0.8); MONOCYTES % 5.7 % (4.4-11.3); NEUTROPHILS # (AUTO) 7.5 (2.1-6.9); NEUTROPHILS % 57.5 % (38.7-80.0); PLATELET COUNT 564 x10e3/uL (140-360); RED BLOOD COUNT 3.92 x10e6/uL (3.6-5.1)
[2020-04-17 07:45] LABS: ALANINE AMINOTRANSFERASE 7 IU/L (0-55); ALBUMIN/GLOBULIN RATIO 0.9 (0.8-2.0); ALKALINE PHOSPHATASE 99 IU/L (40-150); ANION GAP 10.7 mmol/L (8-16); BLOOD UREA NITROGEN 8 mg/dL (7-26); BUN/CREATININE RATIO 11 (6-25); CALCIUM 8.1 mg/dL (8.4-10.2); CARBON DIOXIDE 24 mmol/L (22-29); CHLORIDE 110 mmol/L (98-107); EST GLOMERULAR FILTRATION RATE > 60 ML/MIN (60-); GLUCOSE 91 mg/dL (74-118); POTASSIUM 3.7 mmol/L (3.5-5.1); SODIUM 141 mmol/L (136-145)
[2020-04-17 07:54] VITALS: BP 100/65
[2020-04-17 07:58] LABS: THYROID STIMULATING HORMONE 1.473 uIU/mL (0.350-4.940)
[2020-04-17 07:59] LABS: CHOL/HDL RATIO 3.7 (3.0-3.6)
[2020-04-17] MEDS: PHENYTOIN SODIUM EXT REL 100 MG CAP PO SCH (08:37)
[2020-04-17] MEDS: ONDANSETRON HCL INJ 2MG/ML 2ML 2 MG/ML VIAL IV PRN (08:37)
[2020-04-17] MEDS: FAMOTIDINE 20 MG/2 ML VIAL IV SCH ×2 (08:37→16:29)
[2020-04-17] MEDS: PREDNISONE 20 MG TAB PO SCH (08:37)
[2020-04-17 09:43] VITALS: BP 100/65
--- NOTE | 2020-04-17 10:00 | NUR ---
Follow-up visit. KRANTHI Hardylain Spiritual Care Department O: [phone]
[2020-04-17 11:10] LABS: LYMPHOCYTES % (MANUAL) 31 % (19-48); MONOCYTES % (MANUAL) 3 % (3.4-9.0); NEUTROPHILS % (MANUAL) 66 % (40-74); PLATELET ESTIMATE MODERATELY INCREASED; PLATELET MORPHOLOGY COMMENT NORMAL
[2020-04-17 11:11] LABS: ANISOCYTOSIS SLIGHT; POLYCHROMASIA FEW
[2020-04-17 11:12] LABS: RBC MORPHOLOGY COMMENT NORMAL
[2020-04-17 11:18] VITALS: BP 115/78
--- NOTE | 2020-04-17 11:41 | NUR ---
Called and left a voice message again for Dr. Grissom regarding consult order.
[2020-04-17] MEDS ORDERED: Acetamin/Butalbital/Caffeine PO (12:08)
[2020-04-17] MEDS ORDERED: LIPITOR20 MG PO (12:08)
[2020-04-17 16:06] VITALS: BP 143/85
--- NOTE | 2020-04-17 18:23 | NUR ---
RECEIVED DISCHARGE ORDER FROM ETHAN CALLE. PATIENT IS IN STABLE CONDITION. IV LINE TO LEFT ANTECUBITAL DISCONTINUED WITH TIP INTACT, PRESSURE APPLIED TO SITE, NO BLEEDING NOTED. DISCHARGE FOLDER WITH PAPERWORK AND PRESCRIPTIONS ON HAND. ALL PERSONAL ITEMS ON HAND. PATIENT ACCOMPANIED TO PRIVATE AUTO BY STAFF.
[2020-04-17] MEDS ORDERED: ATORVASTATIN 20 MG TAB PO SCH (21:00)
--- NOTE | 2020-04-21 11:28 | Discharge Summary ---
ADMISSION DIAGNOSES: Headache, seizure, obesity with a BMI of 36.3. DISCHARGE DIAGNOSES: Headache, seizure, obesity with a BMI of 36.3, rule out cerebrovascular accident. HISTORY: Seizures. SURGICAL HISTORY: C5-C7 diskectomy, cholecystectomy, tubal ligation. FAMILY HISTORY: The patient's father had diabetes and the patient's mother had cancer. SOCIAL HISTORY: Occasional tobacco use. HOSPITAL COURSE: A 50-year-old female admits with complaints of left eye pain and tenderness with eyelid and temporal tenderness. On 04/01/2020, she had an N95 mask on and it popped her in the left eye. She went to an supply chain systems manager and got antibiotics and steroid drops. Then, this Tuesday on 04/13/2020, her left eye began throbbing and was sensitive to light when the eyelid and temporal sensitivity started. She denies vision changes, focal weakness, and syncope. Symptoms improved with a cold towel and Fioricet tab. On admission, CT of the brain was negative. MRI of the brain showed no acute abnormalities. MRA of the head showed suspected 3 mm infundibulum versus saccular aneurysm, which arises superiorly from the ophthalmic segment of the right internal carotid artery. No other intracranial MRA abnormalities. Carotid Doppler was negative. ESR was initially 39 and then even with steroid, the ESR went up to 53. TSH was within normal limits. Cholesterol was elevated at 212 and LDL was elevated at 140. She will discharge home with new prescription for Lipitor and Fioricet. She was given copies of her imaging and was told to follow up with her own neurologist. She got tired of waiting for our neurologist and was threatening to go against medical advice. After discussing with Dr. Shanks, he feels safe to discharge her home so she can follow up with her own neurologist per her request. The patient understands discharge instructions and agrees to plan. Vital signs stable, the patient afebrile. Dictated by Shanda Allen NP MD GASTON Gibson/[email or web address] /[id number]
== END 2020-04-17 18:23 | disposition home or self-care (01) ==
LOC: ER 19:08 → ERHOLD 21:48 → MED/SURG3 23:59
PROVIDERS: ADMIT Internal Medicine; ATTEND Internal Medicine
DX: G40.919 Epilepsy, unspecified, intractable, without status epilepticus (principal); E66.9 Obesity, unspecified; Z68.36 Body mass index [BMI] 36.0-36.9, adult; E78.5 Hyperlipidemia, unspecified
CPT/HCPCS: 36415 ×3; 70450; 70544; 70551; 80048; 80053; 80061; 80185; 83036; 84443; 85025 ×2; 85651 ×2; 87635; 93880; 96374; 96375; 99284; G0378 ×3; J1200; J1885; J2405 ×3; J7030; J7512 ×3

== ENCOUNTER → 2020-11-10 | Outpatient (CLI) | payer OTHER ==
[~2020-11-10] MED LIST: Acetamin/Butalbital/Caffeine PO; COVID-19 VACC, MRNA(MODERNA)/PF 100 MCG/0.5 ML VIAL IM ONE; DILANTIN100 MG PO; LIPITOR20 MG PO; LOTEMAX5 ML OP; MOXIFLOXACIN3 ML OP
== END ==
LOC: VACCPMC 10:20
DX: Z23 Encounter for immunization (principal); Z20.828 Contact with and (suspected) exposure to other viral communicable diseases

== ENCOUNTER → 2020-12-17 | Outpatient (CLI) | payer OTHER | END | DRG 951 | LOC: VACCPMC 12:03 | DX: Z23 Encounter for immunization (principal); Z20.822 Contact with and (suspected) exposure to COVID-19 | CPT/HCPCS: 0012A; 91301 ==

== ENCOUNTER → 2021-03-20 | Outpatient (CLI) | payer OTHER ==
[~2021-03-20] MED LIST changes: -COVID-19 VACC, MRNA(MODERNA)/PF 100 MCG/0.5 ML VIAL IM ONE
[2021-03-20 17:02] LABS: BASOPHILS # (AUTO) 0.1 (0.0-0.1); BASOPHILS % 0.5 % (0.0-1.0); EOSINOPHILS # (AUTO) 0.4 (0.0-0.4); HEMATOCRIT 38.1 % (34.2-44.1); HEMOGLOBIN 11.7 g/dL (12.0-16.0); LYMPHOCYTES # (AUTO) 3.5 (1.0-3.2); LYMPHOCYTES % 34.6 % (18.0-39.1); MEAN CORPUSCULAR HEMOGLOBIN 27.1 pg (28-32); MEAN CORPUSCULAR HGB CONC 30.7 g/dL (31-35); MEAN CORPUSCULAR VOLUME 88.4 fL (81-99); MONOCYTES # (AUTO) 0.7 (0.2-0.8); MONOCYTES % 6.7 % (4.4-11.3); NEUTROPHILS # (AUTO) 5.5 (2.1-6.9); NEUTROPHILS % 53.7 % (38.7-80.0); PLATELET COUNT 381 x10e3/uL (140-360); RED BLOOD COUNT 4.31 x10e6/uL (3.6-5.1)
[2021-03-20 17:21] LABS: ALANINE AMINOTRANSFERASE 8 IU/L (0-55); ALKALINE PHOSPHATASE 116 IU/L (40-150); BLOOD UREA NITROGEN 6 mg/dL (7-26); BUN/CREATININE RATIO 9 (6-25); CARBON DIOXIDE 27 mmol/L (22-29); CHLORIDE 104 mmol/L (98-107); CREATININE, SERUM 0.66 mg/dL (0.57-1.11); EST GLOMERULAR FILTRATION RATE > 60 ML/MIN (60-); GLUCOSE 74 mg/dL (74-118); SODIUM 143 mmol/L (136-145)
[2021-03-20 17:27] LABS: PHENYTOIN (DILANTIN) 7.99 ug/mL (10-20)
== END ==
LOC: LAB 16:42
PROVIDERS: ATTEND Student in an Organized Health Care Education/Training Program
DX: G40.909 Epilepsy, unspecified, not intractable, without status epilepticus (principal)
CPT/HCPCS: 36415; 80053; 80185; 85025

== ENCOUNTER → 2021-03-25 | Outpatient (CLI) | payer OTHER ==
[~2021-03-25] MED LIST changes: +IOPAMIDOL 370 MG/ML 200 ML INFUS..BTL INJ ONE; +SODIUM CHLORIDE 0.9% 100 ML ONE
== END ==
LOC: DX 09:51
PROVIDERS: ATTEND Student in an Organized Health Care Education/Training Program
DX: G40.909 Epilepsy, unspecified, not intractable, without status epilepticus (principal); I67.1 Cerebral aneurysm, nonruptured; E66.9 Obesity, unspecified; R51.9 Headache, unspecified; Z79.899 Other long term (current) drug therapy
CPT/HCPCS: 70496; 77080; J7050; Q9967

== ENCOUNTER → 2021-09-10 | Outpatient (CLI) | payer OTHER ==
[~2021-09-10] MED LIST changes: +COVID-19 VACC, MRNA(MODERNA)/PF 100 MCG/0.5 ML VIAL IM ONE; -IOPAMIDOL 370 MG/ML 200 ML INFUS..BTL INJ ONE; -SODIUM CHLORIDE 0.9% 100 ML ONE
== END ==
LOC: VACCPMC 11:15
DX: Z23 Encounter for immunization (principal); Z20.822 Contact with and (suspected) exposure to COVID-19

== ENCOUNTER → 2021-09-11 | Outpatient (CLI) | payer OTHER ==
[~2021-09-11] MED LIST changes: -COVID-19 VACC, MRNA(MODERNA)/PF 100 MCG/0.5 ML VIAL IM ONE
== END ==
LOC: MAMMO 08:50
PROVIDERS: ATTEND Obstetrics & Gynecology
DX: Z12.31 Encounter for screening mammogram for malignant neoplasm of breast (principal)
CPT/HCPCS: 77067

== ENCOUNTER → 2022-12-21 | Outpatient (CLI) | payer BC | LOC: MAMMO 08:50 | PROVIDERS: ATTEND Obstetrics & Gynecology | DX: Z12.31 Encounter for screening mammogram for malignant neoplasm of breast (principal) | CPT/HCPCS: 77067 ==

== ENCOUNTER → 2023-10-26 | Outpatient (REF) | payer BC ==
[2023-10-26 08:41] LABS: BASOPHILS # (AUTO) 0.1 (0.0-0.1); BASOPHILS % 0.6 % (0.0-1.0); EOSINOPHILS # (AUTO) 0.6 (0.0-0.4); EOSINOPHILS % 7.1 % (0.0-6.0); HEMATOCRIT 37.1 % (34.2-44.1); HEMOGLOBIN 11.9 g/dL (12.0-16.0); LYMPHOCYTES % 37.8 % (18.0-39.1); MEAN CORPUSCULAR HEMOGLOBIN 28.5 pg (28-32); MEAN CORPUSCULAR HGB CONC 32.1 g/dL (31-35); MEAN CORPUSCULAR VOLUME 88.8 fL (81-99); MONOCYTES # (AUTO) 0.5 (0.2-0.8); MONOCYTES % 6.1 % (4.4-11.3); NEUTROPHILS # (AUTO) 3.9 (2.1-6.9); PLATELET COUNT 631 x10e3/uL (140-360); RED BLOOD COUNT 4.18 x10e6/uL (3.6-5.1); RED CELL DISTRIBUTION WIDTH 14.2 % (11.7-14.4); WHITE BLOOD COUNT 8.02 x10e3/uL (4.8-10.8)
[2023-10-26 09:30] LABS: ALBUMIN 3.8 g/dL (3.5-5.0); ANION GAP 13.6 mmol/L (8-16); BILIRUBIN,TOTAL 0.1 mg/dL (0.2-1.2); CREATININE, SERUM 0.73 mg/dL (0.57-1.11); POTASSIUM 3.6 mmol/L (3.5-5.1); TOTAL PROTEIN 7.6 g/dL (6.5-8.1)
[2023-10-26 09:36] LABS: PHENYTOIN (DILANTIN) 5.01 ug/mL (10-20)
== END ==
LOC: LAB 08:26
PROVIDERS: ATTEND Physician Assistant
DX: Z79.899 Other long term (current) drug therapy (principal)
CPT/HCPCS: 36415; 80053; 80185; 80186; 85025